=== PATIENT | male | born 2000 | race Caucasian/White ===

== ENCOUNTER 2019-10-02 19:00 | Emergency (ER) | payer MEDICAID, SELFPAY ==
[2019-10-02 19:01] VITALS: BP 135/69; PULSE 81; RESP 21; TEMP 36.7; O2SAT 99; BMI 17.4
--- NOTE | 2019-10-02 19:28 | HMH.EDUTC ---
[facility] [place]: Exposure to STD Disposition: Home, Self-Care Condition on Discharge: Good Instructions: Chlamydia: The Silent STD, Gonorrhea, Chlamydia, Gonorrhea, DI for Gonorrhea Additional Instructions: No sex for at least the next week to make sure that medication cleared infection *Follow up for test results *Make sure to notify the sexual partners you have had unprotected sex with since exposure Return if needed Follow up with you Family Doctor for test results and further treatment Straight to ER If any life threatening symptoms Referrals: PCP,No [Primary Care Provider] - As needed Medical Decision Making - Juan Inquiry Pt receiving controlled substance: No Juan was queried for this patient: No Vital Signs: 10/02/19 19:01 Temperature 98.1 F Temperature Source Oral Pulse Rate [Radial] 81 Respiratory Rate 21 Blood Pressure [Right Arm] 135/69 Blood Pressure Mean [Right Arm] 91 Blood Pressure Source [Right Arm] Automatic Cuff Blood Pressure Position [Right Arm] Sitting 02 Sat by Pulse Oximetry 99 Oxygen Delivery Method Room Air Orders (Tests/Meds): ED MEDICATIONS Discontinued Medications Generic Name Dose Route Start Last Admin Trade Name May PRN Reason Stop Dose Admin Azithromycin 1,000 mg 10/02/19 19:28 10/02/19 19:49 Zithromax 250mg Tablet PO 10/02/19 19:29 1,000 mg ONCE ONE Administration Protocol Ceftriaxone Sodium 250 mg 10/02/19 19:31 10/02/19 19:49 Rocephin 500mg Vial IM 10/02/19 19:32 250 mg ONCE ONE Administration Protocol Lidocaine HCl 0 ml 10/02/19 19:31 10/02/19 19:49 Lidocaine 1% 10ml Mdv IM 10/02/19 19:32 1.05 ml ONCE ONE Administration [facility] [place] - General Stated complaint: STD check Time Seen by Provider: 10/02/19 19:28 Mode of Arrival: Ambulatory Source of Information: Patient Limitations: No Limitations Description of Symptoms (Recalled from Triage Doc. by RN): std check HEENT Symptoms (Recalled from RN notes): No Resp Symptoms (Recalled from RN notes): No Skin Symptoms (Recalled from RN notes): No MS Symptoms (Recalled from RN notes): No Functional Status (Recalled from RN notes): wnl - History of Present Illness Provider Complaint: Patient states that he recently had unprotected sex with a female that was recently checked and tested positive for chlamydia and he is unsure about Gonorrhea States that he wants to be checked and wants to go ahead and get treatment where he had intercourse with her before she got treatment State that he isnt having any symptoms at this time - Related Data Previous Rx's Medication Instructions Recorded Loratadine [Allergy] 10 mg PO DAILY #30 tab 06/11/19 Allergies Allergy/AdvReac Type Severity Reaction Status Date / Time No Known Allergies Allergy Verified 10/02/19 19:19 - Worker's Comp Is this a Worker's Comp case?: No [facility] History - Hepatitis A Screen Drug use history?: No High risk sexual behaviors?: No History of sexually transmitted infection?: No Currently employed?: No Childcare worker?: No Do you have indoor plumbing?: Yes Do you have electricity?: Yes Attestation statement:: This patient has been screened for Hepatitis A risk factors. I have reviewed the patient's past medical history: Yes Medical History: Denies:: Cancer, Diabetes Mellitus Type 1, Diabetes Mellitus Type 2, MRSA Amputation: No Fractures: No - Social History Smoking Status: Current every day smoker Tobacco Type: cigarettes # Packs/Day (cigarettes): 1 Alcohol Intake: never Substance Use Type: marijuana Occupational Status: other Housing: apartment ROS Obtained: Yes All systems reviewed & no additional complaints, Yes Systems reviewed as appropriate & no additional complaints - Constitutional Constitutional: Reports system reviewed and no additional complaints, except as docu - Eyes Eyes: Reports system reviewed and no additional complaints, excep
[2019-10-02 20:27] VITALS: BP 135/69; PULSE 81; RESP 21; TEMP 36.7; O2SAT 99
[2019-10-06 08:36] LABS: Neisseria gonorrhoeae, NAA Negative (Negative)
== END 2019-10-02 20:28 | disposition home or self-care (01) ==
PROVIDERS: Emergency Provider Nurse Practitioner
DX: Z20.2 Contact with and (suspected) exposure to infections with a predominantly sexual mode of transmission (principal); F17.210 Nicotine dependence, cigarettes, uncomplicated; F12.10 Cannabis abuse, uncomplicated
CPT/HCPCS: 87491; 87591; 96372; 99202

== ENCOUNTER 2021-04-05 19:20 | Emergency (ER) | payer SELFPAY ==
--- NOTE | 2021-04-05 20:21 | HMH.EDUTC ---
[facility] [place] Clinical Impression: Viral syndrome, Exposure to COVID-19 virus Disposition: Home, Self-Care Condition on Discharge: Good Instructions: DI for Viral Syndrome, DI for COVID-19 (Suspected or Confirmed ), Preventing the Spread of Coronavirus Discharge Instructions Additional Instructions: Drink plenty of fluids. Take tylenol or ibuprofen for pain or fever. Take the medications as directed. Follow up with your regular doctor. GO TO THE ER FOR ANY WORSENING SYMPTOMS Quarantine until you know the results of your covid-19 test. If it is positive, the health department should call you and give you further instructions about your length of Quarantine and other things. Notify your school or workplace of your results and follow their instructions regarding return to work/school. Prescriptions: Brompheniramine/Pseudoephed/Dm [Bromfed Dm Cough Syrup] 5 ml PO Q6HP PRN #240 ml PRN Reason: Cough Transmission Status: Received by [facility] Ondansetron [Zofran 4mg ODT] 4 mg PO Q8HP PRN #20 tab PRN Reason: Nausea Transmission Status: Received by [facility] Referrals: Provider,Referral, [Primary Care Provider] - Time of Disposition: 21:13 Medical Decision Making - Medical Records Medical records reviewed: No: I reviewed the patient's medical records. - Juan Inquiry Pt receiving controlled substance: No Vital Signs: 04/05/21 20:36 04/05/21 21:14 Temperature 98.4 F 98.4 F Temperature Source Oral Pulse Rate 79 Pulse Rate [Left] 79 Respiratory Rate 16 16 Blood Pressure 140/75 Blood Pressure [Right Arm] 140/75 Blood Pressure Mean [Right Arm] 96 02 Sat by Pulse Oximetry 98 - Lab Data Lab results reviewed: Yes: I reviewed the patient's lab results. [facility] [place] HPI - General Stated complaint: covid test, sore throat cough HUDSON body ache Time Seen by Provider: 04/05/21 20:21 - History of Present Illness Provider Complaint: He states that he has felt bad for the past 2 days. He has had chilling, body aches, nausea, and a dry cough. - Related Data Previous Rx's Medication Instructions Recorded Loratadine [Allergy] 10 mg PO DAILY #30 tab 06/11/19 Brompheniramine/Pseudoephed/Dm 5 ml PO Q6HP PRN #240 ml 04/05/21 [Bromfed Dm Cough Syrup] Ondansetron [Zofran 4mg ODT] 4 mg PO Q8HP PRN #20 tab 04/05/21 Allergies Allergy/AdvReac Type Severity Reaction Status Date / Time No Known Allergies Allergy Verified 10/02/19 19:19 [facility] History - Hepatitis A Screen Attestation statement:: This patient has been screened for Hepatitis A risk factors. I have reviewed the patient's past medical history: Yes Medical History: Denies:: Cancer, Diabetes Mellitus Type 1, Diabetes Mellitus Type 2, MRSA Amputation: No Fractures: No - Social History Smoking Status: Current every day smoker Tobacco Type: cigarettes # Packs/Day (cigarettes): 1 Alcohol Intake: never Substance Use Type: marijuana Occupational Status: other Housing: apartment ROS Obtained: Yes All systems reviewed & no additional complaints - Constitutional Constitutional: Reports as per HPI - Eyes Eyes: Denies eye discharge - ENT Ears, Nose, Mouth, and Throat: Reports as per HPI - Cardiovascular Cardiovascular: Denies chest pain - Respiratory Respiratory: Reports chest congestion, Reports cough, Denies dyspnea, Denies stridor, Denies wheezing Physical Exam - General General appearance: alert, in no apparent distress - Head Head exam: atraumatic, normocephalic, normal inspection - Eye Eye exam: Present: normal appearance, PERRL, EOMI - ENT ENT exam: Present: normal exam, normal oropharynx, mucous membranes moist, TM's normal bilaterally, normal external ear exam - Neck Neck exam: Present: normal inspection, full ROM, trachea midline. Absent: meningismus, lymphadenopathy - Chest Chest inspection: Present: normal inspection, symmetric chest wall rise.
[2021-04-05 20:36] VITALS: BP 140/75; PULSE 79; RESP 16; TEMP 36.9; O2SAT 98; BMI 37.0
[2021-04-05 21:14] VITALS: BP 140/75; PULSE 79; RESP 16; TEMP 36.9
== END 2021-04-05 21:20 | disposition home or self-care (01) ==
PROVIDERS: Emergency Provider Nurse Practitioner Family
DX: U07.1 COVID-19 (principal); B34.9 Viral infection, unspecified
CPT/HCPCS: 99202; C9803; G0463; U0003; U0005

== ENCOUNTER 2021-07-25 19:30 | Emergency (ER) | payer SELFPAY ==
[2021-07-25 20:25] VITALS: BP 122/76; PULSE 73; RESP 20; TEMP 37.1; O2SAT 100; BMI 36.3
--- NOTE | 2021-07-25 20:26 | XR_ITS ---
PROCEDURE INFORMATION: Exam: XR Right Wrist Exam date and time: 07/25/2021 8:29 PM Age: 21 years old Clinical indication: Patient HX: Right wrist pain started last Thursday. 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 Possible repetitive motion injury. TECHNIQUE: Imaging protocol: XR Right wrist. Views: 3 or more views. COMPARISON: CR Hand R 08/17/2018 8:56 PM FINDINGS: Bones/joints: Normal. Soft tissues: Normal. IMPRESSION: No acute findings.
--- NOTE | 2021-07-25 20:50 | HMH.EDUTC ---
[facility] [place]ression: Wrist pain Qualifiers: Laterality: right Qualified Code(s): M25.531 - Pain in right wrist Disposition: Home, Self-Care Condition on Discharge: Good Instructions: DI for Wrist Pain, How to Apply an Masood Wrap Additional Instructions: *RICE, Rest the extremity, Ice 15-20 minutes 3-4 times daily, Compress- wear the masood wrap as discussed as much as possible to help reduce swelling and pain, Elevate the extremity when at rest *Masood wrap is for support and help control swelling, use it except in the shower. Be sure that is not to tight but not to loose either *Elevate when resting *Ibuprofen every 6-8 hours as needed for pain an inflammation. If need something more can take Tylenol in between doses of Ibuprofen to help Immediately follow up with your family doctor for new or worsening of symptoms, or no noticeable improvement over the next 3-5 days Follow up with your Family Doctor if no improvement or any worsening of symptoms Referrals: Rosaura Cr APRN [Primary Care Provider] - As needed Forms: Work/School Release Time of Disposition: 20:59 Medical Decision Making - Juan Inquiry Pt receiving controlled substance: No Juan was queried for this patient: No Vital Signs: 07/25/21 20:25 Temperature 98.8 F Temperature Source Oral Pulse Rate [Right Brachial] 73 Respiratory Rate 20 Blood Pressure [Right Arm] 122/76 Blood Pressure Mean [Right Arm] 91 Blood Pressure Source [Right Arm] Automatic Cuff Blood Pressure Position [Right Arm] Sitting 02 Sat by Pulse Oximetry 100 Oxygen Delivery Method Room Air Orders (Tests/Meds): ORDERS Category Date Time Status Wrist XR right minimum 3 views [XR wrist RT min 3V] Exams 07/25/21 20:26 Taken Stat - Radiology Data #1 Image(s): Wrist Image Reviewed: Yes I reviewed the patient's radiology image no acute fracture noted [facility] [place] - General Stated complaint: wrist pain Time Seen by Provider: 07/25/21 20:50 Mode of Arrival: Ambulatory Source of Information: Patient Limitations: No Limitations Description of Symptoms (Recalled from Triage Doc. by RN): PATIENT C/O RIGHT WRIST PAIN. HE BELIEVES IT MAY BE CAUSED BY REPETITIVE MOTION AT WORK. NO KNOWN INJURY HEENT Symptoms (Recalled from RN notes): No Resp Symptoms (Recalled from RN notes): No Skin Symptoms (Recalled from RN notes): No MS Symptoms (Recalled from RN notes): Yes Functional Status (Recalled from RN notes): WNL - History of Present Illness Provider Complaint: Patient states that he has been having pain in his right wrist on and off for a couple weeks States that he does repetative motions at work States that with certain movement the pain is worse so he came in to get it checked out Denies known injury - Related Data Previous Rx's Medication Instructions Recorded Loratadine [Allergy] 10 mg PO DAILY #30 tab 06/11/19 Brompheniramine/Pseudoephed/Dm 5 ml PO Q6HP PRN #240 ml 04/05/21 [Bromfed Dm Cough Syrup] Ondansetron [Zofran 4mg ODT] 4 mg PO Q8HP PRN #20 tab 04/05/21 Allergies Allergy/AdvReac Type Severity Reaction Status Date / Time No Known Allergies Allergy Verified 10/02/19 19:19 - Worker's Comp Is this a Worker's Comp case?: No [facility] History - Hepatitis A Screen Attestation statement:: This patient has been screened for Hepatitis A risk factors. Medical History: Denies:: Cancer, Diabetes Mellitus Type 1, Diabetes Mellitus Type 2, MRSA Amputation: No Fractures: No - Social History Smoking Status: Current every day smoker Tobacco Type: cigarettes # Packs/Day (cigarettes): 1 Alcohol Intake: never Substance Use Type: marijuana Occupational Status: other Housing: apartment ROS Obtained: Yes All systems reviewed & no additional complaints, Yes Systems reviewed as appropriate & no additional complaints - Constitutional Constitutional: Reports system reviewed and no additional complaints, except as docu, Denies body a
[2021-07-25 21:00] VITALS: BP 122/76; PULSE 73; RESP 20; TEMP 37.1; O2SAT 100
== END 2021-07-25 21:03 | disposition home or self-care (01) ==
PROVIDERS: Emergency Provider Nurse Practitioner; PCP Nurse Practitioner Family
DX: M25.531 Pain in right wrist (principal); F17.210 Nicotine dependence, cigarettes, uncomplicated
CPT/HCPCS: 73110; 99212; G0463

== ENCOUNTER 2022-01-01 09:14 | Emergency (ER) | payer SELFPAY ==
[2022-01-01 09:25] VITALS: BP 113/53; PULSE 65; RESP 18; TEMP 36.7; O2SAT 97; BMI 34.9
[2022-01-01 09:41] LABS: UTC Strep Screen (Rapid) Negative (Negative)
[2022-01-01 09:42] LABS: UTC Influenza A Antigen Negative (Negative); UTC Influenza B Antigen Negative (Negative)
--- NOTE | 2022-01-01 09:56 | EXP.UTC ---
Discharge Plan Disposition Patient Disposition: Home, Self-Care Condition: Good Prescriptions Prescriptions: New ondansetron 4 mg Tablet,Disintegrating 4 mg PO Q8H PRN (Reason: Nausea) Qty: 12 0RF Referrals Follow up/Referrals: Provider,Referral, MD [Primary Care Provider] - See instructions Activity Restrictions/Add. Instructions Additional Instructions/Restrictions: Drink plenty of fluids. Take tylenol or ibuprofen for pain or fever. Take the medications as directed. Follow up with your regular doctor. GO TO THE ER FOR ANY WORSENING SYMPTOMS Clinical Impressions Clinical Impression: Viral syndrome Stand Alone Forms Stand Alone Forms: Work/School Release Instructions Patient Instructions: DI for Viral Syndrome, Coronavirus Disease 2019, Preventing the Spread of Coronavirus Discharge Instructions Discharge ED Provider: Dale Pedersen [facility] [place] General Stated complaint: Diarrhea, nausea, HUDSON Mode of Arrival: Ambulatory Source of Information: Patient Limitations: No Limitations Time Seen by Provider: 01/01/22 09:56 Description of Symptoms (Recalled from Triage Doc. by RN): PATIENT C/O DIARRHEA, NAUSEA, HEADACHE, AND LIGHTHEADED X 3 DAYS HEENT Symptoms (Recalled from RN notes): Yes Resp Symptoms (Recalled from RN notes): No Skin Symptoms (Recalled from RN notes): No MS Symptoms (Recalled from RN notes): No Functional Status (Recalled from RN notes): WNL History of Present Illness Provider Complaint: He states that for the past 1 week he has had sore throat, sinus congestion and a productive cough. Related Data Previous Rx's Medication Instructions Recorded ondansetron 4 mg disintegrating 4 mg PO Q8H PRN Nausea #12 tabs 01/01/22 tablet Allergies Allergy/AdvReac Type Severity Reaction Status Date / Time bismuth subsalicylate Allergy Verified 01/01/22 09:36 [From Pepto-Bismol] Worker's Comp Is this a Worker's Comp case?: No PFSH PFSH Medical History No significant past medical history Social History Smoking Status: Current every day smoker tobacco type: cigarettes packs per day: 1 second hand exposure: Yes alcohol intake: never substance use type: marijuana current occupational status: other Travel in the last 8 weeks: None housing: apartment ROS Obtained: Yes All systems reviewed & no additional complaints except as documented Constitutional Constitutional: Reports chills and Reports fever(s) Eyes Eyes: Denies eye discharge ENT Ears, Nose, Mouth, and Throat: Reports as per HPI Cardiovascular Cardiovascular: Denies chest pain Respiratory Respiratory: Denies chest congestion and Reports cough Gastrointestinal Gastrointestingal: Reports nausea; Denies abdominal pain, constipation, cramping, diarrhea or vomiting Musculoskeletal Musculoskeletal: Denies arthralgias Integumentary/Breasts Skin/Breast: Denies rash Neurologic Neurologic: Denies paresthesias Physical Exam General General appearance: alert and in no apparent distress Head Head exam: atraumatic, normocephalic and normal inspection Eye Eye exam: Present normal appearance, PERRL and EOMI ENT ENT exam: Present mucous membranes moist and normal external ear exam Expanded ENT Exam TM/Canal exam: Bilateral TM: erythema and bulging Nose exam: Absent sinus tenderness Mouth exam: Present normal external inspection; Absent drooling Teeth exam: Present normal inspection Throat exam: Present tonsillar erythema, tonsillomegaly and tonsillar exudate Neck Neck exam: Present normal inspection, full ROM and trachea midline; Absent tenderness, meningismus or lymphadenopathy Chest Chest inspection: Present normal inspection and symmetric chest wall rise; Absent tenderness Respiratory Respiratory exam: Present normal lung sounds bilaterally; Absent respiratory distress, wheezes or stridor Cardiovascula
[2022-01-01 10:05] VITALS: BP 113/53; PULSE 65; RESP 18; TEMP 36.7; O2SAT 97
[2022-01-01 10:41] LABS: Adenovirus,PCR Not Detected (NotDetected); Bordetella Pertussis Not Detected (NotDetected); Chlamydophila Pneumoniae, PCR Not Detected (NotDetected); Coronavirus 19, PCR Not Detected (NotDetected); Coronavirus 229E Not Detected (NotDetected); Coronavirus NL63 Not Detected (NotDetected); Coronavirus OC43 Not Detected (NotDetected); Coronovirus HKU1,PCR Not Detected (NotDetected); Human Metapneumovirus Not Detected (NotDetected); Influenza A, PCR Not Detected (NotDetected); Influenza AH1, 2009 Not Detected (NotDetected); Influenza AH1, PCR Not Detected (NotDetected); Influenza AH3,PCR Not Detected (NotDetected); Influenza B, PCR Not Detected (NotDetected); Mycoplasma Pneumoniae, PCR Not Detected (NotDetected); Parainfluenza 1, PCR Not Detected (NotDetected); Parainfluenza 2, PCR Not Detected (NotDetected); Parainfluenza 3, PCR Not Detected (NotDetected); Parainfluenza 4, PCR Not Detected (NotDetected); Respiratory Syncytial Virus Not Detected (NotDetected); Rhinovirus/Enterovirus Not Detected (NotDetected)
== END 2022-01-01 10:19 | disposition home or self-care (01) ==
PROVIDERS: Emergency Provider Nurse Practitioner Family
DX: B34.9 Viral infection, unspecified (principal)
CPT/HCPCS: 87581; 87632; 87798; 87804; 87880; 99212; C9803; G0463; U0003; U0005